=== PATIENT | male | born 1980 | race African-American/Black ===

== ENCOUNTER 2017-03-20 09:55 | Emergency (ER) | payer OTHER ==
[2017-03-20 10:00] VITALS: BMI 23.0
[2017-03-20 10:02] VITALS: BP 142/87; PULSE 96; RESP 20; TEMP 98.6; O2SAT 98
--- NOTE | 2017-03-20 11:07 | C.PDOC ---
History Of Present Illness Pt c/o left lower back pain. He states pain started suddenly when bending forward. Time Seen by Provider: 03/20/17 10:12 Chief Complaint (Nursing): Back Pain History Per: Patient Onset/Duration Of Symptoms: Days (1) Current Symptoms Are (Timing): Still Present Quality Of Discomfort: "Pain" Severity: Moderate Previous Symptoms: None Associated Symptoms: None. denies: Incontinence, New Weakness, New Numbness Exacerbating Factor(s): Turning, Movement Additional History Per: Prior Records Past Medical History Reviewed: Historical Data, Nursing Documentation, Vital Signs Vital Signs: Last Vital Signs Temp 98.6 F 03/20/17 09:59 Pulse 96 H 03/20/17 09:59 Resp 20 03/20/17 09:59 BP 142/87 03/20/17 09:59 Pulse Ox 98 03/20/17 11:07 - Medical History PMH: No Chronic Diseases Surgical History: No Surg Hx Family History: States: Unknown Family Hx - Social History Hx Tobacco Use: No Hx Alcohol Use: No Hx Substance Use: No - Immunization History Hx Tetanus Toxoid Vaccination: No Hx Influenza Vaccination: No Hx Pneumococcal Vaccination: No Review Of Systems Except As Marked, All Systems Reviewed And Found Negative. Constitutional: Negative for: Fever, Weakness Cardiovascular: Negative for: Chest Pain Respiratory: Positive for: Cough (for 5 days, improving). Negative for: Shortness of Breath, Hemoptysis Gastrointestinal: Negative for: Vomiting, Abdominal Pain, Diarrhea Genitourinary: Negative for: Dysuria, Incontinence, Hematuria Musculoskeletal: Positive for: Back Pain. Negative for: Neck Pain, Leg Pain Skin: Negative for: Rash Neurological: Negative for: Weakness, Numbness, Seizures Physical Exam - Physical Exam Appears: Non-toxic, No Acute Distress Skin: Normal Color, Warm, Dry, No Rash Head: Atraumatic, Normacephalic Eye(s): bilateral: Normal Inspection, PERRL, EOMI Neck: Normal ROM, Supple Cardiovascular: Rhythm Regular Respiratory: Normal Breath Sounds, No Accessory Muscle Use Gastrointestinal/Abdominal: Soft, No Tenderness Back: No CVA Tenderness, No Vertebral Tenderness, Paraspinal Tenderness (left lower) Extremity: Normal ROM, No Pedal Edema, No Calf Tenderness Neurological/Psych: Oriented x3, Normal Motor, Normal Sensation ED Course And Treatment O2 Sat by Pulse Oximetry: 98 Pulse Ox Interpretation: Normal Reassessment Condition: Improved Disposition Counseled Patient/Family Regarding: Diagnosis, Need For Followup, Rx Given - Disposition Referrals: [facility] at [facility] [Outside] Disposition: HOME/ ROUTINE Disposition Time: 11:09 Condition: IMPROVED Additional Instructions: Follow up in the clinic for further evaluation and treatment. Return to the ER if you develop shortness of breath, abdominal pain, weakness, numbness, trouble urinating, worsening of symptoms or if you have any other concerns. Prescriptions: Naproxen [Naprosyn] 1 tab PO BID PRN #20 tab PRN Reason: Pain Promethazine HCl/Codeine [Prometh-Codein 6.25-10 mg/5 ml] 5 ml PO Q4 PRN #240 ml PRN Reason: Cough Instructions: Acute Low Back Pain (ED) Forms: General Discharge Instructions - Clinical Impression Clinical Impression: Left low back pain, Upper respiratory infection
== END 2017-03-20 11:17 | disposition home or self-care (01) ==
LOC: C.ER 09:55
DX: J06.9 Acute upper respiratory infection, unspecified (principal); M54.5 Low back pain
CPT/HCPCS: 96372; 99284; J1885

== ENCOUNTER 2017-04-10 09:37 | Emergency (ER) | payer OTHER ==
[2017-04-10 09:37] VITALS: BMI 23.0
[2017-04-10 09:53] VITALS: BP 113/79; PULSE 65; TEMP 98.2; O2SAT 98
[2017-04-10] MEDS ORDERED: Naproxen 550 mg Tab PO STA (10:13)
[2017-04-10] MEDS ORDERED: Naproxen 550 mg Tab PO ONE (10:18)
--- NOTE | 2017-04-10 10:18 | C.PDOC ---
History Of Present Illness 36 y/o male presents to the ED complaining of left lower back pain x 3 weeks. Last time patient visited [facility], he was prescribed naproxen, which worked well for him. He is requesting to get more Naproxen. Patient also reports having cough since a couple of weeks. Denies fever or any further medical complaints. Time Seen by Provider: 04/10/17 10:03 Chief Complaint (Nursing): Back Pain History Per: Patient History/Exam Limitations: no limitations Onset/Duration Of Symptoms: Other (x3 weeks) Current Symptoms Are (Timing): Still Present Past Medical History Reviewed: Historical Data, Nursing Documentation, Vital Signs Vital Signs: Last Vital Signs Temp 98.2 F 04/10/17 09:40 Pulse 65 04/10/17 09:40 Resp 14 04/10/17 09:40 BP 113/79 04/10/17 09:40 Pulse Ox 98 04/10/17 10:18 - Medical History PMH: No Chronic Diseases Surgical History: No Surg Hx Family History: States: Unknown Family Hx - Social History Hx Tobacco Use: No Hx Alcohol Use: No Hx Substance Use: No - Immunization History Hx Tetanus Toxoid Vaccination: No Hx Influenza Vaccination: No Hx Pneumococcal Vaccination: No Review Of Systems Except As Marked, All Systems Reviewed And Found Negative. (As per HPI, otehrwise negative) Respiratory: Positive for: Cough Musculoskeletal: Positive for: Back Pain (Left lower back pain) Physical Exam - Physical Exam Appears: Well, No Acute Distress Skin: Normal Color, Warm, Dry Head: Atraumatic, Normacephalic Eye(s): bilateral: Normal Inspection, PERRL, EOMI Nose: Normal Throat: Normal Neck: Normal Cardiovascular: Rhythm Regular, No Murmur Respiratory: Normal Breath Sounds, No Accessory Muscle Use Gastrointestinal/Abdominal: Normal Exam Back: Other (Midline lumbar muscle tenderness) Extremity: Normal ROM Neurological/Psych: Oriented x3 ED Course And Treatment O2 Sat by Pulse Oximetry: 98 (RA) Pulse Ox Interpretation: Normal Medical Decision Making Medical Decision Making: Time: 10:14 Initial Impression: Lower back pain Plan: Naproxen 550mg PO Time: 10:14 Upon provider reevaluation patient is feeling better, is medically stable, and requires no further treatment in the ED at this time. Patient will be discharged home with Rx for Guaifenesin 1tbs PO and Naproxen 1tab PO. Counseling was provided and all questions were answered regarding diagnosis. There is agreement to discharge plan. Return if symptoms persist or worsen. Clinical Impression: Bronchitis and Lumbar sprain Scribe Attestation: Documented by Meghana Simpson acting as a scribe for Xander Reveles MD. Scribe Attestation: All medical record entries made by the Scribe were at my direction and personally dictated by me. I have reviewed the chart and agree that the record accurately reflects my personal performance of the history, physical exam, medical decision making, and the department course for this patient. I have also personally directed, reviewed, and agree with the discharge instructions and disposition. Disposition - Disposition Referrals: [facility] at [facility] [Outside] Disposition: HOME/ ROUTINE Disposition Time: 10:14 Condition: STABLE Additional Instructions: Mr. Greene, thank you for letting us take care of you today. Return to the ER if your symptoms worsen, or if any problems. Take the medication listed below as prescribed. Please call our [facility] at the phone number listed below to make a follow up appointment. . Prescriptions: guaiFENesin [guaifENESIN] 1 tbs PO Q6 PRN #6 oz PRN Reason: Cough Naproxen [Naprosyn] 1 tab PO BID PRN #25 tab PRN Reason: Pain Instructions: Acute Bronchitis (ED), Back Pain (ED) Forms: [employer] (Togolese), General Discharge Instructions Print Language: MALAY - POA Present On Arrival: None - Clinical Impression Clinical Impression: Lumbar sprain, Bronchitis
[2017-04-10 10:28] VITALS: RESP 16
== END 2017-04-10 10:27 | disposition home or self-care (01) ==
LOC: C.ER 09:37
DX: J40 Bronchitis, not specified as acute or chronic (principal); S33.5XXA Sprain of ligaments of lumbar spine, initial encounter; X58.XXXA Exposure to other specified factors, initial encounter; Y92.9 Unspecified place or not applicable

== ENCOUNTER 2017-04-15 01:51 | Emergency (ER) | payer SELFPAY ==
[2017-04-15 01:51] VITALS: BMI 23.0
[2017-04-15 02:02] VITALS: BP 127/91; PULSE 83; RESP 18; TEMP 97.6; O2SAT 100
[2017-04-15 02:37] LABS: SQUAMOUS EPITHIAL < 1 /hpf (0-5); URINE BILIRUBIN NEGATIVE (NEGATIVE); URINE BLOOD NEGATIVE (NEGATIVE); URINE CLARITY Clear (Clear); URINE COLOR Yellow (YELLOW); URINE GLUCOSE (UA) NORMAL (Normal); URINE LEUKOCYTE ESTERASE NEG Leu/uL (Negative); URINE NITRATE NEGATIVE (NEGATIVE); URINE PROTEIN NEGATIVE (NEGATIVE); URINE UROBILINOGEN NORMAL mg/dL (0.2-1.0)
[2017-04-15] MEDS ORDERED: Sodium Chloride 0.9% 1,000 ML ONE (02:37)
[2017-04-15 02:58] LABS: BASO % 0.6 % (0.0-2.0); EOS # 0.2 K/uL (0.0-0.7); EOS % 2.7 % (0.0-4.0); HEMOGLOBIN 14.8 g/dL (12.0-18.0); LYMPH % 12.4 % (20.0-40.0); MEAN CELL VOLUME 79.6 fL (80.0-94.0); MEAN CORPUSCULAR HEMOGLOBIN 27.8 pg (27.0-31.0); MEAN CORPUSCULAR HGB CONC 34.9 g/dL (33.0-37.0); MEAN PLATELET VOLUME 8.3 fL (7.2-11.7); MONO # 0.4 K/uL (0.0-0.8); MONO % 5.1 % (0.0-10.0); NEUT # 6.6 K/uL (1.8-7.0); NEUT % 79.2 % (50.0-75.0); RBC 5.32 Mil/uL (4.40-5.90); RED CELL DISTRIBUTION WIDTH 13.5 % (11.5-14.5); WHITE BLOOD COUNT 8.3 K/uL (4.8-10.8)
[2017-04-15] MEDS ORDERED: Sodium Chloride 0.9% 500 ML IV STA (02:58)
[2017-04-15 03:10] LABS: ALB/GLOB RATIO 1.6 (1.0-2.1); ALBUMIN 4.1 g/dL (3.5-5.0); ALT/SGPT 41 U/L (21-72); AST/SGOT 25 U/L (17-59); BLOOD UREA NITROGEN 12 mg/dL (9-20); CALCIUM 8.4 mg/dl (8.6-10.4); GFR AFRICAN-AMERICAN > 60; GFR NON-AFRICAN AMERICAN > 60; LIPASE 142 U/L (23-300)
--- NOTE | 2017-04-15 04:35 | C.PDOC ---
History Of Present Illness 37 year old male who presents to the emergency department with a complaint of abdominal pain associated with nausea status post eating rice and beans before bed tonight. Denied any fever, chills, diarrhea or recent travel. PMD: none provided Time Seen by Provider: 04/15/17 02:33 Chief Complaint (Nursing): Abdominal Pain History Per: Patient History/Exam Limitations: no limitations Onset/Duration Of Symptoms: Sudden Onset Current Symptoms Are (Timing): Still Present Past Medical History Reviewed: Historical Data, Nursing Documentation, Vital Signs Vital Signs: Last Vital Signs Temp 97.6 F 04/15/17 01:58 Pulse 83 04/15/17 01:58 Resp 18 04/15/17 01:58 BP 127/91 H 04/15/17 01:58 Pulse Ox 100 04/15/17 04:38 - Medical History PMH: Chronic Pain (back) Denies: Chronic Kidney Disease Surgical History: No Surg Hx Family History: States: Unknown Family Hx - Social History Hx Tobacco Use: No Hx Alcohol Use: No Hx Substance Use: No - Immunization History Hx Tetanus Toxoid Vaccination: No Hx Influenza Vaccination: No Hx Pneumococcal Vaccination: No Review Of Systems Except As Marked, All Systems Reviewed And Found Negative. Constitutional: Negative for: Fever, Chills Gastrointestinal: Positive for: Nausea, Abdominal Pain. Negative for: Diarrhea Physical Exam - Physical Exam Appears: No Acute Distress Cardiovascular: Rhythm Regular Respiratory: Normal Breath Sounds, No Decreased Breath Sounds, No Wheezing Gastrointestinal/Abdominal: Soft, Tenderness (epigastric minimally), No Guarding , No Rebound, No Other (RLQ pain) Back: Normal Inspection, No CVA Tenderness, No Vertebral Tenderness Neurological/Psych: Oriented x3 ED Course And Treatment - Laboratory Results Result Diagrams: 04/15/17 02:53 04/15/17 02:53 O2 Sat by Pulse Oximetry: 100 (RA) Pulse Ox Interpretation: Normal Medical Decision Making Medical Decision Making: Initial Impression: Abdominal pain Initial Plan: * CMP * Lipase * CBC * Pepcid * NS 500ml IV per 500mls/hr * Toradol 30mg IVP * Zofran inj 4mg IVP * UA On reassessment,pt appears well, in no distress, VSS. Labs reviewed and d/w pt who was instructed too return to ER w/o fail if severe abdominal pain or pain to RLQ, fever or vomiting. Scribe Attestation: Documented by Serena Wiley, acting as a scribe for Leyla Montiel PA-C. Provider Scribe Attestation: All medical record entries made by the Scribe were at my direction and personally dictated by me. I have reviewed the chart and agree that the record accurately reflects my personal performance of the history, physical exam, medical decision making, and the department course for this patient. I have also personally directed, reviewed, and agree with the discharge instructions and disposition. Disposition Counseled Patient/Family Regarding: Diagnosis, Need For Followup, Rx Given - Disposition Referrals: [facility] at [facility] [Outside] Disposition: HOME/ ROUTINE Disposition Time: 04:45 Condition: STABLE Additional Instructions: Clear to soft diet today No milk/ solid foods Follow up in clinic Return to ER OR WORSE Prescriptions: Famotidine [Pepcid] 20 mg PO DAILY #14 tab Ondansetron [Zofran Odt] 4 mg PO BID #6 odt Instructions: Gastritis (ED) Forms: [employer] (Macedonian) - Clinical Impression Clinical Impression: Abdominal pain, Epigastric abdominal pain
== END 2017-04-15 05:00 | disposition home or self-care (01) ==
LOC: C.ER 01:51
DX: R10.13 Epigastric pain (principal)
CPT/HCPCS: 80053; 81001; 83690; 85025; 96361; 96374; 96375; 99283; J1885; J2405; J7040